=== PATIENT | male | born 2000 | race Caucasian/White ===

== ENCOUNTER 2023-12-22 19:35 | Emergency (ER) | payer BC ==
[~2023-12-22] VITALS: Ht 170.2 cm; Wt 77.1 kg
[2023-12-22 19:40] VITALS: BP_SYST 163; PULSE 61; RESP 18; TEMP 98.7; O2SAT 100
[2023-12-22] MEDS ORDERED: IBUP-1971 PO (21:01)
[2023-12-22] MEDS ORDERED: HYDR-3917 PO (21:01)
[2023-12-22] MEDS ORDERED: KETOROLAC TROMETHAMINE 60 MG/2 ML VIAL IM ONE (21:30)
[2023-12-22] MEDS ORDERED: HYDROcodone/ACETAMIN 7.5-325 MG TAB PO ONE (21:45)
== END 2023-12-22 21:52 | disposition home or self-care (01) ==
LOC: SED 19:35
DX: S42.022A Displaced fracture of shaft of left clavicle, initial encounter for closed fracture (principal); Z79.899 Other long term (current) drug therapy; V00.321A Fall from snow-skis, initial encounter; Y93.89 Activity, other specified; Y92.89 Other specified places as the place of occurrence of the external cause; Y99.8 Other external cause status
CPT/HCPCS: 99283; 73030; 96372; J1885